=== PATIENT | female | born 1960 | race Caucasian/White ===

== ENCOUNTER → 2016-12-10 | Day surgery (SDC) | payer OTHER ==
[~2016-12-10] VITALS: Ht 160 cm; Wt 78.0 kg
[~2016-12-10] MED LIST: 0.9% Sodium Chloride 1,000 ML IV PRN; CYCL5TAB PO; SERT25TA2 PO; Sodium Chloride LOK Flush 10 mL Syringe IV PRN; TRAZ150T72 PO; fentaNYL-PF 50 mCg/mL 2 mL Inj IVPUSH PRN
[2016-12-10 09:34] VITALS: BP 132/64; PULSE 72; RESP 16; O2SAT 97
[2016-12-10 10:18] VITALS: BP 113/56; PULSE 61; RESP 16; O2SAT 100
[2016-12-10 10:32] VITALS: BP 116/61; PULSE 55; RESP 57; O2SAT 100
--- NOTE | 2016-12-10 13:31 | ENDO ---
[address] [address] ENDOSCOPY PROCEDURE PATIENT: VIK BROWN : 1960 MR#: [id number] ADMIT: 12/10/2016 JOB ID: [id number] PROCEDURE: Colonoscopy. INDICATION: Patient with a personal history of colon polyps. Patient's ASA classification is II. Mallampati score is II. MEDICATIONS: Versed 5 mg, fentanyl 100 mcg. INSTRUMENT USED: [id number]. PREPARATION QUALITY: Good. PROCEDURE DETAILS: After informed consent was obtained, the patient was brought into the GI suite, where she was placed on oxygen via nasal cannula and monitored with continuous pulse oximeter, telemetry, and blood pressure monitoring. A time-out was performed. Then, she was placed in a left lateral decubitus position and medications were administered for sedation. Digital rectal exam was performed, which was unremarkable. The colonoscope was then inserted into the rectum and advanced under direct visualization to the cecum, which was identified by the presence of the ileocecal valve and appendiceal orifice. Once the cecum was reached, the terminal ileum was briefly intubated. The colonoscope was then withdrawn back into the rectum as the mucosa and lumen were examined. In the rectum, retroflexion was performed. Following retroflexion, remaining air in the rectum was suctioned, and procedure was completed. FINDINGS: In the transverse colon, there was a 4 mm sessile polyp that was removed with cold snare. IMPRESSION: Transverse colon polyp. RECOMMENDATIONS: 1. Follow up in GI clinic as needed. 2. Repeat colonoscopy in five years, sooner if symptoms dictate. COMPLICATIONS: None. ESTIMATED BLOOD LOSS: Less than 5 mL.
--- NOTE | 2016-12-15 08:01 | PATH ---
SURGICAL PATHOLOGY Attending Physician:Dee Dee Sanon CASE STATUS: Signed Out PATIENT NAME: VIK BROWN PID: [id number] : 1960 DATE COLLECTED:12/10/2016 18:55 SPECIMEN: Colon, Polyp CLINICAL HISTORY: 1). TRANSVERSE COLON POLYP X 1 FINAL DIAGNOSIS: Transverse Colon Polyp, Biopsy: Tubular adenoma; negative for high-grade dysplasia. IC10: K63.5 GROSS DESCRIPTION: The specimen is received in one formalin filled container labeled with the patient's name, sublabeled "transverse colon polyp x1" and consists of a 0.2 x 0.2 x 0.2 CM portion of tissue which is entirely submitted in one cassette. 12/10/2016DC ICD-9 CODES: CPT CODES: 1: 05433 Electronically Signed Out Desiree Membreno MD [facility] Pathology [facility], [place] [address] Technical component performed at [facility], [facility] [address], [address]
== END | disposition home or self-care (01) ==
LOC: END 00:40
PROVIDERS: ATTEND Internal Medicine Gastroenterology
DX: Z12.11 Encounter for screening for malignant neoplasm of colon (principal); D12.3 Benign neoplasm of transverse colon; Z86.010 Personal history of colon polyps; Z83.71 Family history of colonic polyps; F51.02 Adjustment insomnia; F33.9 Major depressive disorder, recurrent, unspecified
CPT/HCPCS: 45385; G0500; J2250; J3010; J7030